=== PATIENT | female | born 1980 | race Caucasian/White ===

== ENCOUNTER 2016-03-07 19:10 | Emergency (ER) | payer SELFPAY ==
[~2016-03-07] VITALS: Ht 157.5 cm; Wt 69.0 kg
[~2016-03-07 19:10] MED LIST: CYCL1TAB29 PO; IBUP800T23 PO
[2016-03-07] MEDS ORDERED: SODIUM CHLOR 0.9% 1000 ML INJ 1,000 ML IV ONE ×2 (19:12→20:45)
[2016-03-07] MEDS ORDERED: cloNIDine HCL 0.1 MG TAB PO ONE ×2 (19:15→20:15)
[2016-03-07] MEDS ORDERED: LORazepam 2 MG/ML VIAL IVP ONE (19:15)
[2016-03-07] MEDS ORDERED: SODIUM CHLORIDE 0.9% FLUSH 5 ML FLUSH IVF PRN (19:15)
[2016-03-07 19:17] VITALS: BP 134/73; PULSE 94; RESP 22; TEMP 98.4; O2SAT 98
[2016-03-07 19:30] VITALS: RESP 17; O2SAT 98
[2016-03-07] MEDS ORDERED: LORazepam 2 MG/ML VIAL IV PUSH ONE (19:45)
[2016-03-07 19:48] LABS: AUTOMATED NEUTROPHIL # 11.5 TH/MM3 (1.8-7.7); BASOPHIL % 0.3 % (0.0-2.0); EOSINOPHIL # 0.3 TH/MM3 (0-0.4); EOSINOPHIL % 1.9 % (0.0-4.0); HEMO FLAGS DIFF FINAL; LYMPH % 5.4 % (9.0-44.0); LYMPHOCYTE # 0.7 TH/MM3 (1.0-4.8); MEAN CELL VOLUME 80.4 FL (80.0-100.0); MEAN CORPUSCULAR HEMOGLOBIN 26.1 PG (27.0-34.0); MEAN CORPUSCULAR HGB CONC 32.5 % (32.0-36.0); MONO % 6.2 % (0.0-8.0); NEUT % 86.2 % (16.0-70.0); PLATELET COUNT 226 TH/MM3 (150-450); RED BLOOD COUNT 4.61 MIL/MM3 (4.00-5.30); RED CELL DISTRIBUTION WIDTH 14.2 % (11.6-17.2); WHITE BLOOD COUNT 13.4 TH/MM3 (4.0-11.0)
[2016-03-07 19:57] LABS: AMPHETAMINE, URINE NEG (NEG); BARBITURATES, URINE NEG (NEG); COCAINE, URINE NEG (NEG)
[2016-03-07 20:16] VITALS: BP 130/93; PULSE 110; RESP 17; O2SAT 96
[2016-03-07 20:39] LABS: ANION GAP 14 MEQ/L (5-15); BICARBONATE 21.4 MEQ/L (21.0-32.0); BLOOD UREA NITROGEN 7 MG/DL (7-18); CHLORIDE 102 MEQ/L (98-107); GLOMERULAR FILTRATION RATE 110 ML/MIN (>89); POTASSIUM 3.7 MEQ/L (3.5-5.1); SODIUM (NA) 137 MEQ/L (136-145)
[2016-03-07] MEDS ORDERED: diphenhydrAMINE HCL 50 MG/ML VIAL IV PUSH ONE (20:45)
--- NOTE | 2016-03-07 21:14 | RADRPT ---
EXAM DATE/TIME: 03/07/2016 20:52 [place] COMPARISON: No previous studies available for comparison. INDICATIONS : Chest pain. MEDICAL HISTORY : None. SURGICAL HISTORY : None. ENCOUNTER: Initial ACUITY: 1 day PAIN SCORE: Non-responsive. LOCATION: Bilateral chest FINDINGS: A single view of the chest demonstrates the lungs to be symmetrically aerated without evidence of mas s, infiltrate or effusion. The cardiomediastinal contours are unremarkable. Osseous structures are intact. CONCLUSION: No evidence of acute cardiopulmonary disease. Tj Jones MD on March 07, 2016 at 21:12 Board Certified Radiologist. This report was verified electronically.
--- NOTE | 2016-03-07 21:34 | PD ---
HPI Chief Complaint: Alcohol/Drug Intoxication Time Seen by Provider: 19:12 Travel History International Travel<30 days: No Contact w/Intl Traveler<30days: No Traveled to known affect area: No History of Present Illness HPI Patient is 35. She arrives by EMS. She unfortunately abuses heroin intravenously. She injected about 12 hours prior to ER arrival. She states she is in withdrawals. She feels a cramping sensation in her legs. She feels quite restless and anxious. patient has no thoughts of hurting herself or hurting others. She is trying to quit abusing drugs intravenously. FOR[facility]LY [facility] Past Medical History Medical History: Denies Significant Hx Diminished Hearing: No Medical other: Yes (etoh, heroin use) Immunizations Current: Yes ?: Not LMP: 02/14/16 : 2 Para: 0 : 1 Dilation and Curettage (D&C): Yes Past Surgical History Surgical History: No Previous Surgery Social History Alcohol Use: Yes (occ) Tobacco Use: Yes (1/2 PPD vapor currently) Substance Use: Yes (heroin) Allergies-Medications (Allergen,Severity, Reaction): Coded Allergies: Penicillin (Verified Allergy, Unknown, UNKNOWN, 03/07/16) Reported Meds & Prescriptions Reported Meds & Active Scripts Active No Active Prescriptions or Reported Medications Review of Systems Except as stated in HPI: all other systems reviewed are Neg Physical Exam Narrative GENERAL: 35-year-old female well-nourished well-developed anxious SKIN: Warm and dry. IVDA injection wounds in the antecubital fossae. HEAD: Atraumatic. Normocephalic. EYES: Pupils equal and round. No scleral icterus. No injection or drainage. ENT: No nasal bleeding or discharge. Mucous membranes pink and moist. NECK: Trachea midline. No JVD. CARDIOVASCULAR: Regular rate and rhythm. No murmur appreciated. RESPIRATORY: No accessory muscle use. Clear to auscultation. Breath sounds equal bilaterally. GASTROINTESTINAL: Soft. NTND. MUSCULOSKELETAL: No obvious deformities. No clubbing. No cyanosis. No edema. NEUROLOGICAL: Awake and alert. No obvious cranial nerve deficits. Motor grossly within normal limits. Normal speech. PSYCHIATRIC: Anxious. Agitated. Data Data Last Documented VS Vital Signs Date Time Temp Pulse Resp B/P Pulse Ox O2 Delivery O2 Flow Rate FiO2 03/07/16 20:16 110 17 130/93 96 Room Air Orders Electrocardiogram (03/07/16 19:12) Alcohol (Ethanol) (03/07/16 19:12) Basic Metabolic Panel (Bmp) (03/07/16 19:12) Complete Blood Count With Diff (03/07/16 19:12) Drug Screen, Random Urine (03/07/16 19:12) Chest, Single Ap (03/07/16 19:12) Iv Access Insert/Monitor (03/07/16 19:12) Ecg Monitoring (03/07/16 19:12) Oximetry (03/07/16 19:12) Lorazepam Inj (Ativan Inj) (03/07/16 19:15) Sodium Chloride 0.9% Flush (Ns Flush) (03/07/16 19:15) Sodium Chlor 0.9% 1000 Ml Inj (Ns 1000 M (03/07/16 19:12) Troponin I (03/07/16 19:12) Clonidine (Catapres) (03/07/16 19:15) Lorazepam Inj (Ativan Inj) (03/07/16 19:45) Clonidine (Catapres) (03/07/16 20:15) Sodium Chlor 0.9% 1000 Ml Inj (Ns 1000 M (03/07/16 20:45) Diphenhydramine Inj (Benadryl Inj) (03/07/16 20:45) Prochlorperazine Inj (Compazine Inj) (03/07/16 21:45) Potassium Chloride (Kcl) (03/07/16 22:00) Labs Laboratory Tests Test 03/07/16 19:33 White Blood Count 13.4 TH/MM3 Red Blood Count 4.61 MIL/MM3 Hemoglobin 12.0 GM/DL Hematocrit 37.0 % Mean Corpuscular Volume 80.4 FL Mean Corpuscular Hemoglobin 26.1 PG Mean Corpuscular Hemoglobin 32.5 % Concent Red Cell Distribution Width 14.2 % Platelet Count 226 TH/MM3 Mean Platelet Volume 8.3 FL Neutrophils (%) (Auto) 86.2 % Lymphocytes (%) (Auto) 5.4 % Monocytes (%) (Auto) 6.2 % Eosinophils (%) (Auto) 1.9 % Basophils (%) (Auto) 0.3 % Neutrophils # (Auto) 11.5 TH/MM3 Lymphocytes # (Auto) 0.7 TH/MM3 Monocytes # (Auto) 0.8 TH/MM3 Eosinophils # (Auto) 0.3 TH/MM3 Basophils # (Auto) 0.0 TH/MM3 CBC Comment DIFF FINAL Differential Comment Sodium Level 137 MEQ/L Potassium Level 3.7 MEQ/L Chloride Level 102 MEQ/L Carbon Dioxide Level 21.4 MEQ/L Anion Gap 14 MEQ/L Blood Urea Nitrogen 7 MG/DL Creatinine 0.62 MG/DL Estimat Glomerular Filtration 110 ML/MIN Rate Random Glucose 106 MG/DL Calcium Level 8.7 MG/DL Troponin I LESS THAN 0.02 NG/ML Urine Opiates Screen POS Urine Barbiturates Screen NEG Urine Amphetamines Screen NEG Urine Benzodiazepines Screen NEG Urine Cocaine Screen NEG Urine Cannabinoids Screen POS Ethyl Alcohol Level LESS THAN 3 MG/DL MDM Medical Decision Making Medical Screen Exam Complete: Yes Emergency Medical Condition: Yes Differential Diagnosis Opioid withdrawal, anxiety, endocarditis considered reasonably safely excluded with no fever/murmur/neuro deficit Narrative Course CBC & BMP Diagram 03/07/16 19:33 Urine toxicology is positive for opiates and cannabinoids Alcohol level is less than 3 Ativan, Benadryl, Compazine, and Clonidine given. Pt persistently agitated. 20meq Potassium given. Pt sleeping as of 1050pm. [facility] has no beds available for detox. Patient asleep at 11:25 PM. She is ready for discharge. Diagnosis Primary Impression: Opioid withdrawal delirium, acute, hyperactive Referrals: [facility] day Additional Instructions: You have a choice when it comes to health care, and we are glad that you chose [facility]. Hopefully, we have met your expectations on today's visit. You are welcome to return to [facility] at any time, as we are committed to meeting the health care needs of our community. Med/Other Pt SpecificInfo: Prescription(s) given Scripts No Active Prescriptions or Reported Meds Disposition: 01 DISCHARGE HOME Condition: Stable Henry Dixon MD Mar 07, 2016 21:34
[2016-03-07] MEDS ORDERED: PROCHLORPERAZINE INJ 10 MG/2 ML VIAL IVS ONE (21:45)
[2016-03-07] MEDS ORDERED: POTASSIUM CHLORIDE 20 MEQ CONTROLLED RELEASE TAB PO ONE (22:00)
[2016-03-08 00:32] VITALS: BP 106/62; PULSE 81; RESP 15; O2SAT 97
== END 2016-03-08 00:43 | disposition home or self-care (01) ==
LOC: NEPE 19:10
DX: F11.23 Opioid dependence with withdrawal (principal); R41.0 Disorientation, unspecified; R45.1 Restlessness and agitation; F99 Mental disorder, not otherwise specified; F17.210 Nicotine dependence, cigarettes, uncomplicated; R07.9 Chest pain, unspecified
CPT/HCPCS: 71010; 80048; 80307; 80320; 84484; 85025; 96361; 96374; 96375; 96376; 99284; J0780; J1200; J2060; J7030

== ENCOUNTER 2016-05-28 20:07 | Emergency (ER) | payer OTHER ==
[2016-05-28 20:07] VITALS: PULSE 0; RESP 12; O2SAT 84
[~2016-05-28 20:07] MED LIST changes: -CYCL1TAB29 PO; +EPINEPHrine HCL (1:10,000) 1 MG/10 ML SYRINGE IV ONE; -IBUP800T23 PO; +SODIUM BICARBONATE 8.4% INJ 50 MEQ/50 ML SYR IV ONE
--- NOTE | 2016-05-28 20:33 | PD ---
HPI Chief Complaint: cardiac arrest Time Seen by Provider: 20:19 Travel History International Travel<30 days: No Contact w/Intl Traveler<30days: No History of Present Illness HPI 36 year-old woman who presents to the emergency department in cardiac arrest. EMS initially received call for patient not breathing. When they responded was nobody else on scene and there was a phone next to the patient. Patient had occasional agonal respirations, was in cardiac arrest with PEA. Patient was intubated in the field, received multiple doses of epinephrine, and ACLS protocol. No change in rhythm. Review of records shows patient is a history of IV drug use with heroin in the past. History Past Medical History Narrative Medical From review of records, IV drug use : 2 Para: 0 Dilation and Curettage (D&C): Yes Social History Alcohol Use: Yes (occ) Tobacco Use: Yes (1/2 PPD vapor currently) Allergies-Medications (Allergen,Severity, Reaction): Coded Allergies: Penicillin (Verified Allergy, Unknown, UNKNOWN, 03/07/16) Reported Meds & Prescriptions Reported Meds & Active Scripts Active No Active Prescriptions or Reported Medications Review of Systems Except as stated in HPI: all other systems reviewed are Neg Physical Exam Narrative GENERAL: 36 year-old woman, cardiac arrest with CPR ongoing SKIN: Cool and clammy. HEAD: Atraumatic. Normocephalic. EYES: Pupils equal and round. No scleral icterus. No injection or drainage. ENT: Endotracheal tube in place. NECK: Trachea midline. CARDIOVASCULAR: In cardiac arrest, clammy. Occasional agonal PEA complexes. RESPIRATORY: No spontaneous restaurant effort. Coarse bilateral breath sounds with endotracheal intubation. GASTROINTESTINAL: Abdomen soft. Appear somewhat distended. MUSCULOSKELETAL: No obvious deformities. No edema. NEUROLOGICAL: Obtunded. No response to any stimuli. MDM Medical Decision Making Medical Screen Exam Complete: Yes Emergency Medical Condition: Yes Differential Diagnosis Cardiac arrest, PEA, drug overdose, hemorrhage, PE, ACS, pneumothorax, hypoglycemia, toxins Narrative Course Medical decision making This a 36 year-old woman suspected overdose presents in PEA arrest. Unknown down time. 19:32 EMS called to dispatch center working a code. No response to ACLS in route. Here she had asystole with occasional agonal QRS complexes. She had no pulse. ET tube was confirmed. A second IV line was placed. She given IV fluids, 2 rounds of epinephrine, some sodium bicarbonate as well. No response to intervention. Bedside ultrasound was done which showed no evidence of pneumothorax, cardiac standstill with occasional quivers, no paracardial fluid, with no fluid in the abdomen. Given her prolonged downtime, lack of response intervention, and unknown downtime previous, patient was pronounced at 2014. Procedures Procedure Narrative point of care ultrasound: Rapid ultrasound assessment was undertaken to try to elucidate cause of PE arrest. I didn't see any evidence of pneumothorax. There is no pericardial tampon. There is cardiac since it with only occasional myocardial quivers. There is no fluid in the abdomen. Diagnosis Primary Impression: Cardiac arrest Scripts No Active Prescriptions or Reported Meds Disposition: 20 Ry Lauren MD May 28, 2016 20:33
== END 2016-05-29 01:20 | disposition expired ==
LOC: NEPC 20:07 → NEPI 05-29 01:20
DX: I46.9 Cardiac arrest, cause unspecified (principal); F17.210 Nicotine dependence, cigarettes, uncomplicated
CPT/HCPCS: 92950; 99285; J0171